=== PATIENT | female | born 2000 | race Two or more races ===

== ENCOUNTER → 2024-08-10 14:28 | Outpatient (REF) | payer BC, SELFPAY ==
[2024-08-10 15:50] LABS: Amylase 49 U/L (28-100); Lipase 27 U/L (13-75)
[2024-08-10 16:15] LABS: Hemoglobin A1c 5.2 % (<=5.6)
[2024-08-12 11:08] LABS: Insulin Level 6.5 uIU/mL (2.6-24.9)
== END ==
LOC: LABSPEC 14:28
PROVIDERS: Referring Provider Nurse Practitioner Family; Visit Provider Nurse Practitioner Family
DX: G40.89 Other seizures (principal); F41.9 Anxiety disorder, unspecified; F32.A Depression, unspecified; R47.01 Aphasia; A69.20 Lyme disease, unspecified; A44.9 Bartonellosis, unspecified; R61 Generalized hyperhidrosis; L90.6 Striae atrophicae; G51.8 Other disorders of facial nerve; B60.09 Other babesiosis; R11.0 Nausea; R51.9 Headache, unspecified; Z77.120 Contact with and (suspected) exposure to mold (toxic); H53.8 Other visual disturbances; R63.5 Abnormal weight gain; H93.233 Hyperacusis, bilateral; R68.83 Chills (without fever)
CPT/HCPCS: 82150; 83036; 83525; 83690

== ENCOUNTER → 2024-09-20 12:06 | Outpatient (REF) | payer BC, SELFPAY ==
[2024-09-20 17:20] LABS: CRP < 3.00 mg/L (0.0-3.0)
== END ==
LOC: LABSPEC 12:06
PROVIDERS: Referring Provider Nurse Practitioner Family; Visit Provider Nurse Practitioner Family
DX: G40.89 Other seizures (principal); F41.9 Anxiety disorder, unspecified; F32.A Depression, unspecified; R47.01 Aphasia; A69.20 Lyme disease, unspecified; A44.9 Bartonellosis, unspecified; B60.09 Other babesiosis; R11.0 Nausea; R51.9 Headache, unspecified; Z77.120 Contact with and (suspected) exposure to mold (toxic); H53.8 Other visual disturbances; R63.5 Abnormal weight gain; H93.233 Hyperacusis, bilateral; R68.83 Chills (without fever); R61 Generalized hyperhidrosis; L90.6 Striae atrophicae; G51.8 Other disorders of facial nerve
CPT/HCPCS: 86140